=== PATIENT | female | born 1970 | race Caucasian/White ===

== ENCOUNTER 2018-04-27 16:13 | Emergency (ER) | payer MEDICARE, OTHER ==
--- NOTE | 2018-04-27 16:52 | EDM.PDOC ---
ED HPI GENERAL MEDICAL PROBLEM - General Stated Complaint: INFECTED TOENAILS Time Seen by Provider: 04/27/18 16:30 Source of Information: Reports: Patient History Limitations: Reports: No Limitations - History of Present Illness INITIAL COMMENTS - FREE TEXT/NARRATIVE: According to patient she has severe diabetes and has diabetic neuropathy. Her physician had to remove the great toe nail recently. Pt has been doing warm compresses. she has noticed some swelling and redness and hence here to quick checkup. no fever or chills. no nausea or vomiting. Onset: Today Onset Date: 04/27/18 Duration: Getting Worse Location: Reports: Other (toe pain) Quality: Reports: Ache Severity: Moderate Improves with: Reports: None Worsens with: Reports: None Associated Symptoms: Denies: Confusion, Chest Pain, Cough, Diaphoresis, Fever/ Chills, Headaches, Nausea/Vomiting, Rash, Seizure, Shortness of Breath, Syncope , Weakness ED ROS GENERAL - Review of Systems Review Of Systems: See Below Constitutional: Denies: Fever, Chills, Diaphoresis, Decreased Appetite HEENT: Denies: Rhinitis, Throat Pain, Throat Swelling Respiratory: Denies: Cough, Sputum Cardiovascular: Denies: Chest Pain, Lightheadedness Endocrine: Denies: Polydypsia, Polyuria GI/Abdominal: Denies: Abdominal Pain, Nausea, Vomiting : Denies: Dysuria, Flank Pain Musculoskeletal: Reports: Foot Pain. Denies: Joint Pain, Joint Swelling Skin: Reports: Erythema. Denies: Pruritis, Rash ED EXAM, GENERAL - Physical Exam Exam: See Below Exam Limited By: No Limitations General Appearance: Alert, WD/WN, No Apparent Distress Eye Exam: Bilateral Eye: EOMI, PERRL Ears: Normal External Exam, Normal Canal, Hearing Grossly Normal, Normal TMs Ear Exam: Bilateral Ear: TM normal Nose: Normal Inspection, Normal Mucosa, No Blood Throat/Mouth: Normal Inspection, Normal Lips, Normal Teeth, Normal Gums, Normal Oropharynx, Normal Voice, No Airway Compromise Head: Atraumatic, Normocephalic Neck: Normal Inspection, Supple, Non-Tender, Full Range of Motion Respiratory/Chest: No Respiratory Distress, Lungs Clear, Normal Breath Sounds, No Accessory Muscle Use, Chest Non-Tender Cardiovascular: Normal Peripheral Pulses, Regular Rate, Rhythm, No Edema, No Gallop, No JVD, No Murmur, No Rub Extremities: Normal Inspection, Normal Range of Motion Skin Exam: Other (Both great toe nail has been removed. the nail bed is clean, there is erythema around the nail bed. there is mild purulent drainage around the left nail margin. ) Course - Vital Signs Text/Narrative:: Pt's CBC appears normal. She has nail bed infection post nail excision.Wound culture obtained. I have started her on keflex 500mg TID. advised warm compresses daily.. Simple dressing of the wound done. Per patient request diflucan 150mg 2 tablets was dispensed for her antibiotic induced vaginal candidiasis. - Orders/Labs/Meds Orders: Active Orders 24 hr Category Date Time Status CULTURE WOUND + SMEAR [RM] Stat Lab 04/27/18 17:00 Received Labs: Laboratory Tests 04/27/18 Range/Units 16:46 WBC 6.1 (4.0-11.0) K/uL RBC 4.23 (3.80-5.80) M/uL Hgb 13.2 (11.5-16.5) g/dL Hct 38.2 (37.0-47.0) % MCV 90 (76-96) fL MCH 31.2 (27.0-32.0) pg MCHC 34.6 (31.0-35.0) g/dL RDW 12.3 (11.0-16.0) % Plt Count 235 (150-500) K/uL MPV 11.0 H (6.0-10.0) fL Neut % (Auto) 45.6 (45.0-70.0) % Lymph % (Auto) 41.7 H (20.0-40.0) % Rowan % (Auto) 8.1 (3.0-10.0) % Eos % (Auto) 4.1 (1.0-5.0) % Baso % (Auto) 0.5 (0.0-0.5) % Neut # (Auto) 2.76 (2.00-7.50) K/uL Lymph # (Auto) 2.52 (1.50-4.00) K/uL Rowan # (Auto) 0.49 (0.20-0.80) K/uL Eos # (Auto) 0.25 (0.04-0.40) K/uL Baso # (Auto) 0.03 (0.02-0.10) K/uL Departure - Departure Time of Disposition: 17:30 Disposition: Home, Self-Care 01 Condition: Fair Clinical Impression: Toe infection - Discharge Information - Problem List & Annotations (1) Toe infection SNOMED Code(s): 894177715 Code(s): L08.9 - LOCAL INFECTION OF THE SKIN AND SUBCUTANEOUS TISSUE, UNSP Status: Acute Current Visit: Yes - Problem List Review Problem List Initiated/Reviewed/Updated: Yes - My Orders Last 24 Hours: My Active Orders 04/27/18 17:00 CULTURE WOUND + SMEAR [RM] Stat - Assessment/Plan Last 24 Hours: My Active Orders 04/27/18 17:00 CULTURE WOUND + SMEAR [RM] Stat Assessment:: great toe infection after nail excision B/l Plan: Pt's CBC appears normal. She has nail bed infection post nail excision.Wound culture obtained. I have started her on keflex 500mg TID. advised warm compresses daily.. Simple dressing of the wound done. Per patient request diflucan 150mg 2 tablets was dispensed for her antibiotic induced vaginal candidiasis.
[2018-04-27] MEDS ORDERED: Cephalexin 500 MG Cap ONE (17:00)
== END 2018-04-27 17:20 | disposition home or self-care (01) ==
LOC: LB.ED 16:13
DX: T81.4XXA Infection following a procedure, initial encounter (principal); L08.9 Local infection of the skin and subcutaneous tissue, unspecified; E11.40 Type 2 diabetes mellitus with diabetic neuropathy, unspecified
CPT/HCPCS: 36415; 85025; 87070; 87077; 87186; 87205; 99282; 99284; A9270-GY